=== PATIENT | male | born 2000 | race Caucasian/White ===

== ENCOUNTER 2020-05-05 13:37 | Emergency (ER) | payer OTHER, SELFPAY ==
[2020-05-05 13:39] VITALS: BP 125/75; PULSE 82; RESP 16; TEMP 36.4; O2SAT 97; BMI 21.1
--- NOTE | 2020-05-05 14:53 | ED.RN ---
PT LEFT WITHOUT BEING SEEN. PT NOTIFIED DOOR SCREENER
== END 2020-05-05 15:04 | disposition left against medical advice (07) ==
LOC: ED 14:56
PROVIDERS: Emergency Provider Emergency Medicine; PCP Pediatrics
DX: Z53.21 Procedure and treatment not carried out due to patient leaving prior to being seen by health care provider (principal)

== ENCOUNTER 2022-08-29 00:46 | Emergency (ER) | payer MEDICAID, SELFPAY ==
[2022-08-29 00:47] VITALS: PULSE 112; RESP 24; TEMP 37.2; O2SAT 96; BMI 19.8
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
[2022-08-29 00:50] VITALS: BP 127/96
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
[2022-08-29] MEDS: Cephalexin 250 MG Capsule 500 MG PO (01:22)
[2022-08-29] MEDS: oxyCODONE 5 MG Tablet PO (01:22)
[2022-08-29] MEDS: Diphth,Pertuss(Acell),Tet Vac 0.5 ML Vial IM (01:24)
[2022-08-29] MEDS: Lidocaine 1% (20 ml mdv) 20 ML Vial INFILT (01:26)
[2022-08-29 01:56] VITALS: PULSE 89; RESP 16; O2SAT 99
== END 2022-08-29 02:20 | disposition home or self-care (01) ==
LOC: ED 02:03
PROVIDERS: Emergency Provider Emergency Medicine; Visit Provider Emergency Medicine
DX: S81.841A Puncture wound with foreign body, right lower leg, initial encounter (principal); X95.9XXA Assault by unspecified firearm discharge, initial encounter; Z23 Encounter for immunization; F17.290 Nicotine dependence, other tobacco product, uncomplicated
CPT/HCPCS: 12002; 73590; 90715; 96372; 99285

== ENCOUNTER → 2023-02-25 | Outpatient (CLI) | payer MEDICAID, SELFPAY ==
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
== END | disposition home or self-care (01) ==
LOC: CT 16:00
PROVIDERS: Referring Provider Otolaryngology; Visit Provider Otolaryngology
DX: J32.9 Chronic sinusitis, unspecified (principal)
CPT/HCPCS: 70486

== ENCOUNTER → 2023-03-21 | Outpatient (CLI) | payer MEDICAID, SELFPAY | END | disposition home or self-care (01) | LOC: LABSPEC 14:58 | PROVIDERS: Referring Provider Otolaryngology; Visit Provider Otolaryngology | DX: J32.9 Chronic sinusitis, unspecified (principal) | CPT/HCPCS: 87070; 87205 ==

== ENCOUNTER 2024-04-01 12:26 | Outpatient (CLI) | payer MEDICAID, SELFPAY | END 2024-04-01 23:59 | disposition home or self-care (01) | LOC: LAB 12:31 | PROVIDERS: Referring Provider Nurse Practitioner Women's Health; Visit Provider Nurse Practitioner Women's Health | DX: Z31.440 Encounter of male for testing for genetic disease carrier status for procreative management (principal) | CPT/HCPCS: 36415 ==

== ENCOUNTER 2025-03-01 13:14 | Emergency (ER) | payer MEDICAID, SELFPAY ==
[2025-03-01 13:15] VITALS: BP 100/61; PULSE 88; RESP 16; TEMP 37.2; O2SAT 100
[2025-03-01 14:02] VITALS: BMI 17.4
[2025-03-01 14:03] VITALS: BP 97/47; PULSE 70; RESP 16; O2SAT 100
[2025-03-01 14:11] LABS: Hematocrit 36.8 % (40-54); Hemoglobin 11.9 g/dL (13.0-16.5); Immature Granulocytes Count 0.020 X10^3/uL (0.0-0.0); Mean Corp Hgb Conc 32.3 g/dL (32-36); Mean Corpuscular Volume 80.5 fL (80-94); Mean Platelet Vol. 8.4 fl (6.2-12.0); NRBC Flagged by Analyzer 0 % (0-5); Platelet Count 381 K/mm3 (150-450); RBC Distribution Width CV 13.2 % (11.6-14.6); RBC Distribution Width SD 38.2 fl (35.1-43.9); Red Blood Count 4.57 M/mm3 (4.6-6.2); White Blood Count 7.1 K/mm3 (4.4-11.0)
[2025-03-01 14:44] LABS: AST(SGOT) 24 U/L (<=37); Alanine Aminotransfer ALT/SGPT 9 U/L (<=46); Albumin, Serum 4.2 g/dL (3.5-5.0); Alkaline Phosphatase 83 U/L (40-129); Anion Gap 13 (5-15); BUN 10 mg/dL (4-19); BUN/Creat Ratio 10.3 RATIO (10-20); Calcium,Total 9.7 mg/dL (7.6-11.0); Carbon Dioxide 23.8 mmol/L (21.0-32.0); Chloride 99 mmol/L (98-108); Estimated Creatinine Clearance 83.94 ml/min (50-250); Globulin 3.4 g/dL (2.2-4.2); Glucose 110 mg/dL (70-99); Potassium 4.4 mmol/L (3.3-5.1)
--- NOTE | 2025-03-01 15:24 | EDS_ITS ---
HPI History of Present Illness Chief Complaint: Numb/Ting Detail of Chief Complaint: Stocking glove numbness right and left lower extremity Onset/Context/Timing Onset: Days Context: Sudden Onset Timing: Intermittent (Intermittent for the past couple weeks until today) Quality: Numbness lower extremities Location: Right and left lower extremity Current Severity: Moderate Maximum Severity: Severe Worsened by: Nothing Relieved by: Until today rubbing it out Associated Symptoms Associated Symptoms: Persistent numbness in his left lower extremity and right lower extremity Narrative Narrative: Patient is a 24-year-old male. He presents with persistent numbness of his left lower extremity in a stocking glove distribution from the knee distally on the left side and from the ankle distally on the right side. He states prior to today he has had numbness in both lower extremities that lasted up to 20 minutes. He would be able to work it out . Today he was not able to. His girlfriend had to help him get to the car so he could drive her to work. He went home and took a nap thinking it would go away. He did not. He presents now because of persistent numbness his left lower extremity and right lower extremity. He denies bowel bladder dysfunction. He denies radicular pain. Denies back pain. He denies any paresthesia or anesthesia in the upper extremities. He denies headache. Denies visual, ocular auditory symptoms. Prior similar symptoms: Yes Recent Illness/Hospitalization: No PFSH PFSH Medical History no medical history no medical history Allergy/AdvReac Type Severity Reaction Status Date / Time No Known Allergies Allergy Verified 03/01/25 13:16 Social History Smoking Status: Current every day smoker tobacco type: e-cigarettes ROS ROS ED Constitutional Constitutional ED: Denies chills, fever(s), subjective, sweats or weight loss Eyes Eyes: Denies blurry vision or change in vision ENT ENT ED: Denies ear pain, rhinorrhea or sore throat Cardiovascular Cardiovascular: Denies chest pain or palpitations Respiratory/Chest Respiratory/Chest: Denies cough, dyspnea or dyspnea on exertion Gastrointestinal Gastrointestinal: Denies abdominal pain, nausea or vomiting Genitourinary Genitourinary ED: Denies dysuria, hematuria or urinary frequency Musculoskeletal Musculoskeletal: Denies arthralgias, back pain, myalgias or neck pain Neurologic Neurologic: Reports paresthesias RLE and LLE Psychiatric Psychiatric: Denies anxiety or depression Endocrine Endocrinology: Denies cold intolerance or heat intolerance Hematologic/Lymphatic Hematologic/Lymphatic: Reports systems reviewed and no addt'l complaints, except as documented EXAM Physical Exam Const Vital Signs: 03/01/25 13:15 03/01/25 14:03 Temperature 98.9 F Temperature Source Oral Pulse Rate 88 70 Respiratory Rate 16 16 Blood Pressure 100/61 97/47 L Blood Pressure Mean 74 63 Pulse Ox 100 100 Oxygen Delivery Method Room Air Room Air Positive well nourished and well developed General Appearance ED: well developed, cyanotic, diaphoretic, NAD and pallor HEENT Reports moist mucous membranes HEENT Narrative: Head is atraumatic no cephalic. Ears normal Eyes PERRL and EOMs intact bilaterally General Eye ED: Negative for pale conjunctiva or scleral icterus Neck no lymphadenopathy, supple and no JVD Chest Wall inspection of chest normal and palpation of chest normal Resp normal respiratory effort and clear to auscultation bilaterally Cardio regular rate, regular rhythm, S1 normal heart sound, S2 normal heart sound and no murmurs Back/Spine no CVA tenderness Extremity normal to inspection Extremity Narrative: Altered sensation knee down the left side ankle down on the right side. Patella and ankle reflex are 2+ and symmetric. There is no clonus Babinski. He reports abnormal sensation lateral aspect of the left foot. It is not in a dermatomal distribution. Patient has 5/5 strength with plantar and dorsiflexion of the foot flexion and extension of the hip. He has full strength with flexion and extension of his knee as well. There is no clonus or Babinski sign noted. Neuro oriented x3, CN's II-XII intact bilaterally and No no sensory deficits noted Sensorium / Orientation: alert Motor Exam: strength 5/5 throughout Psych mental status grossly normal Skin no rashes or lesions noted, no wounds and skin turgor normal General Skin Exam: jaundice and pallor MDM MDM MDM Narrative Medical decision making narrative: Will obtain a comprehensive metabolic panel to assess electrolytes specifically sodium, calcium and potassium. With this being his stocking glove distribution he will need outpatient workup. Since he does not not have a primary care physician he was referred to Dr. Spangler. Lab Data Attestation: I reviewed the patient's lab results. Lab results narrative: CBC reveals mild anemia with an H&H 11.9 and 36.8. Competence metabolic panel reveals a slight elevation in glucose of 110. Labs: Laboratory Results - last 24 hr 03/01/25 14:00 WBC 7.1 RBC 4.57 L Hgb 11.9 L Hct 36.8 L MCV 80.5 MCH 26.0 L MCHC 32.3 RDW Std Deviation 38.2 RDW Coeff of Rochelle 13.2 Plt Count 381 MPV 8.4 Immature Gran % (Auto) 0.300 Neut % (Auto) 58.8 Lymph % (Auto) 28.5 Maverick % (Auto) 8.5 Eos % (Auto) 3.5 Baso % (Auto) 0.4 Absolute Neuts (auto) 4.2 Absolute Lymphs (auto) 2.01 Nucleated RBC % 0 Sodium 135 Potassium 4.4 Chloride 99 Carbon Dioxide 23.8 Anion Gap 13 BUN 10 Creatinine 1.00 Estim Creat Clear Calc 83.94 Est GFR (MDRD) Non-Af 108 BUN/Creatinine Ratio 10.3 Glucose 110 H Calcium 9.7 Total Bilirubin 0.28 AST 24 ALT 9 Alkaline Phosphatase 83 Total Protein 7.6 Albumin 4.2 Globulin 3.4 Albumin/Globulin Ratio 1.2 Treatment and Re-Evaluation :: Patient was informed the cause of his numbness is uncertain. He was referred to primary care physician for outpatient workup. Discharge Plan Triage Chief Complaint: Numb/Ting ED Provider: Chandler Alston Dx/Rx/DC Orders Clinical Impression: Paresthesia of both lower extremities Primary Care Provider: Care Physician,No Primary Referrals: Ellie Spangler DO [Med Staff - Active Staff] - 1 Week Care Physician,No Primary [Primary Care Provider] - Print Language: [place] Disposition Disposition: Home, Self Care
[2025-03-01 15:39] VITALS: BP 95/64; PULSE 70; RESP 16; TEMP 36.7; O2SAT 100
--- NOTE | 2025-03-01 20:14 | CM.ED ---
Social Work Reason for visit: No PCP Patient verified that he does not currently have a PCP. [facility] provider list given. No further needs identified at this time. Jessica Quiroga, HISTOTECHNICIAN, ROAD MACHINE OPERATOR
== END 2025-03-01 15:40 | disposition home or self-care (01) ==
PROVIDERS: Emergency Provider Emergency Medicine; Visit Provider Emergency Medicine
DX: R20.2 Paresthesia of skin (principal); F17.290 Nicotine dependence, other tobacco product, uncomplicated
CPT/HCPCS: 80053; 85025; 99283; A4216